=== PATIENT | male | born 1990 | race African-American/Black ===

== ENCOUNTER 2023-11-15 07:22 | Emergency (ER) | payer MEDICAID ==
[~2023-11-15] VITALS: Ht 190.5 cm; Wt 87.0 kg
[2023-11-15 07:26] VITALS: O2SAT 100
[2023-11-15 08:53] LABS: BASOPHILS % 0.2 % (0.0-2.0); HEMATOCRIT. 37.4 % (42.0-52.0); LYMPHOCYTES % 26.1 % (20.0-50.0); MEAN CORPUSCULAR HEMOGLOBIN 25.9 pg (28.0-32.0); MEAN CORPUSCULAR HGB CONC 32.1 g/dL (31.0-37.0); MEAN CORPUSCULAR VOLUME 80.9 fL (80.0-94.0); MEAN PLATELET VOLUME 7.7 fl (7.4-10.4); MONOCYTES % 12.3 % (2.0-8.0); NEUTROPHILS % 59.4 % (40.0-76.0); PLATELET 533 x1000/uL (130-400); RED BLOOD CELL COUNT 4.63 mill/uL (4.7-6.1); WHITE BLOOD COUNT 5.4 x1000/uL (4.5-11.0)
[2023-11-15 09:02] LABS: CHLORIDE 103 mEq/L (98-107); POTASSIUM 3.5 mEq/L (3.5-5.1); SODIUM 137 mEq/L (136-145)
[2023-11-15 09:03] LABS: CARBON DIOXIDE 29 mEq/L (21-32)
[2023-11-15 09:04] LABS: CALCIUM 9.2 mg/dL (8.7-10.4)
[2023-11-15 09:08] LABS: CREATININE 0.7 mg/dL (0.6-1.3); GLUCOSE 100 mg/dL (70-105)
[2023-11-15 09:09] LABS: UREA NITROGEN BLOOD 8 mg/dL (9-23)
[2023-11-15] MEDS: MORPHINE SULFATE 4 MG/ML INJ (FOR IV/IM USE) IV STA (09:38)
[2023-11-15] MEDS: ONDANSETRON HCL 4MG/2ML INJ IV STA (09:39)
[2023-11-15 10:26] LABS: TROPONIN I HIGH SENSITIVITY < 4 ng/L (3.0-53)
[2023-11-15] MEDS ORDERED: IBUP-2028 MT (11:53)
[2023-11-15] MEDS ORDERED: HYDR-4001 MT (11:53)
[2023-11-15 12:00] VITALS: TEMP 98.4
[2023-11-15] MEDS: IOHEXOL-350 100 ML BOTTLE ONE (12:19)
[2023-11-15 13:45] VITALS: BP 130/69; PULSE 72; RESP 18
== END 2023-11-15 13:50 | disposition home or self-care (01) ==
LOC: ER 08:28
DX: M79.604 Pain in right leg (principal); M54.50 Low back pain, unspecified; F17.200 Nicotine dependence, unspecified, uncomplicated
CPT/HCPCS: 80048; 83880; 85025; 85379; 84484; 36415; 93971; 71045; 73590; 71275; 93005; 96374; 96375; 99285; Q9967; J2405; J2270; Z7610 ×4